=== PATIENT | male | born 1940 | race Caucasian/White ===

== ENCOUNTER 2017-12-17 07:58 | Emergency (ER) | payer BC ==
--- NOTE | 2017-12-17 08:08 | Emergency Department Record ---
History of Present Illness - General Chief complaint: Pain Stated complaint: HIP PAIN Time Seen by Provider: 12/17/17 08:07 Source: Patient Mode of Arrival: EMS Limitations: No limitations - History of Present Illness Initial comments: The patient is here due to L lower back pain for one day. He moved a canoe yesterday and then later noticed the onset of L lower back pain. Initially it was mild but then worsened during the day. This AM the pain is much worse. The pain is mainly only present with movement and twisting. It intermittently radiates down the back of the L leg. There is no leg numbness, weakness, or an bowel or bladder issues. The patient has not taken any medicine for it. He denies any hx of fever, trauma, swelling, AP, dysuria, or hematuria. MD Complaint: Other Onset/Timin -: Days(s) Location: Left, Other History of Same: No Radiation: Distal Severity scale (1-10): 4 Quality: Sharp Consistency: Intermittent Improves with: Nothing Worsens with: Nothing Associated Symptoms: Denies other symptoms - Related Data Home Medications Medication Instructions Recorded Confirmed Last Taken Amlodipine Besylate [Norvasc] 10 mg PO QHS 12/17/17 12/17/17 Unknown Ezetimibe 10 mg PO QHS 12/17/17 12/17/17 Unknown Fenofibrate,Micronized 134 mg PO DAILY 12/17/17 12/17/17 Unknown [Fenofibrate] Furosemide [Lasix] 40 mg PO DAILY 12/17/17 12/17/17 Unknown Insulin Detemir [Levemir Flextouch] 24 units SQ QHS 12/17/17 12/17/17 Unknown Leuprolide Acetate [Lupron Depot 11.25 mg IM ASDIR 12/17/17 12/17/17 Unknown (Lupaneta)] Lovastatin 40 mg PO DAILY 12/17/17 12/17/17 Unknown Metformin HCl 1,000 mg PO BID 12/17/17 12/17/17 Unknown Metoprolol Succinate [Toprol Xl] 25 mg PO DAILY 12/17/17 12/17/17 Unknown Previous Rx's Medication Instructions Recorded Ciprofloxacin HCl [Cipro] 500 mg PO Q12HR #14 tablet 12/17/17 Hydrocodone/Acetaminophen [[place] 1 each PO QID #12 tablet 12/17/17 5-325 Tablet] Allergies Allergy/AdvReac Type Severity Reaction Status Date / Time No Known Drug Allergies Allergy Verified 12/17/17 08:07 Travel Screening - Travel/Exposure Within Last 30 Days Have you traveled within the last 30 days?: No Review of Systems Constitutional: Denies: Chills Eyes: Denies: Eye discharge ENT: Denies: Congestion Respiratory: Denies: Cough, Dyspnea Cardiovascular: Denies: Chest pain Endocrine: Denies: Fatigue Gastrointestinal: Denies: Abdominal pain, Nausea Genitourinary: Denies: Dysuria Musculoskeletal: Reports: Back pain. Denies: Arthralgia Past Medical History - SOCIAL HISTORY Smoking Status: Former smoker Alcohol Use: None Drug Use: None - RESPIRATORY Hx Respiratory Disorders: No - CARDIOVASCULAR Hx Cardio Disorders: Yes Hx Abnormal EKG: Yes Hx Cardiac Cath: Yes Hx Heart Attack: Yes Hx Hypertension: Yes - NEURO Hx Neuro Disorders: No - GI Hx GI Disorders: No - Hx Genitourinary Disorders: Yes Hx Kidney Stones: Yes Hx Prostate Problems: Yes - ENDOCRINE Hx Endocrine Disorders: Yes Hx Diabetes: Yes - MUSCULOSKELETAL Hx Musculoskeletal Disorders: No - PSYCH Hx Psych Problems: No - HEMATOLOGY/ONCOLOGY Hx Hematology/Oncology Disorders: Yes Hx Cancer: Yes (prostate) Hx Chemotherapy: No Hx Radiation Therapy: No Family Medical History Any Significant Family History?: No Physical Exam - General General Appearance: Alert, Oriented x3, Cooperative, No acute distress - Head Head exam: Atraumatic, Normocephalic, Normal inspection - Eye Eye exam: Normal appearance, PERRL - Neck Neck exam: Normal inspection, Full ROM. negative: Tenderness - Respiratory Respiratory exam: Normal lung sounds bilaterally. negative: Respiratory distress - Cardiovascular Cardiovascular Exam: Regular rate, Normal rhythm, Normal heart sounds - GI/Abdominal GI/Abdominal exam: Soft, Normal bowel sounds. negative: Pulsatile mass, Rebound , Rigid, Tenderness - Extremities Extremities exam: Normal inspection, Full ROM, Normal capillary refill. negative: Tenderness - Back Back exam: Reports: Normal inspection, Paraspinal tenderness (The L lower back pain is 100% reproducible to palpation over the L lateral L3-5 paraspinal area. ). Denies: CVA tenderness (R), CVA tenderness (L), Vertebral tenderness Image of Body Front/Back: 1 - Area of pain and tenderness. - Neurological Neurological exam: Alert, Normal gait, Oriented X3, Reflexes normal. negative: Abnormal gait, Altered, Motor sensory deficit (The motor and sensory exams are 5 /5 and equal bilaterally.) - Psychiatric Psychiatric exam: negative: Anxious Course Vital Signs 12/17/17 08:01 Temperature 98.4 F Pulse Rate 54 L Respiratory 18 Rate Blood Pressure 148/73 Pulse Ox 99 - Reevaluation(s) Reevaluation #1: The patient is doing much better at this time. His pain has resolved and he is resting comfortably. 12/17/17 09:25 Reevaluation #2: The patient is doing much better at this time. He is able to get up and walk with only very minimal L buttock pain. There is no leg numbness, weakness, or any abdominal pain or upper back pain. He feels ready for home. I did discuss the lab work and xray and urine results with him and the need for F/U. 12/17/17 09:40 Medical Decision Making - Data Complexity MDM Data: Labs Ordered and/or Reviewed, X-Ray Ordered and/or Reviewed - Lab Data Result diagrams: 12/17/17 08:25 12/17/17 08:25 - Radiology Data Radiology results: Report reviewed (LS Spine: Extensive degenerative disc dz. Neg for acute fx.) Disposition Disposition: Discharge Clinical Impression: Lumbar spine strain Qualifiers: Encounter type: initial encounter Qualified Code(s): S39.012A - Strain of muscle, fascia and tendon of lower back, initial encounter UTI (urinary tract infection) Qualifiers: Urinary tract infection type: site unspecified Hematuria presence: without hematuria Qualified Code(s): N39.0 - Urinary tract infection, site not specified Disposition: Home, Self-Care Condition: (2) Stable Instructions: Urinary Tract Infection in Men (ED), Acute Low Back Pain (ED) Additional Instructions: Please take Advil for 5-7 days for pain along with the [place] for pain. Take the Cipro as directed. Please see your family doctor for recheck later this week or early next week. Return to the ER for any worsening symptoms, pain, fever, leg numbness, weakness, or any bowel or bladder issues. Prescriptions: Ciprofloxacin HCl [Cipro] 500 mg PO Q12HR #14 tablet Hydrocodone/Acetaminophen [[place] 5-325 Tablet] 1 each PO QID #12 tablet Forms: Patient Portal Access Time of Disposition: 10:05 Quality - Quality Measures Quality Measures: N/A - Blood Pressure Screening View Details: Yes Does Patient Have Any of the Following: No Blood Pressure Classification: Hypertensive Reading Systolic Measurement: 148 Diastolic Measurement: 73 Screening for High Blood Pressure: < First Hypertensive BP, F/U Documented > [ [id number]] First Hypertensive Follow-up Interventions: Referral to alternative/primary care provider.
[2017-12-17] MEDS ORDERED: HYDROCODONE/APAP 5/325MG TABLET PO ONE (08:12)
[2017-12-17 08:30] LABS: BASO % 0.4 % (0-6); EOS % 3.3 % (0-6); GRAN % 65.8 % (47-80); HEMATOCRIT 39.3 % (42.0-52.0); HEMOGLOBIN 12.6 gm/dl (14.0-18.0); LYMPH % 20.7 % (16-45); MEAN CELL VOLUME 86.9 fl (81-97); MEAN CORPUSCULAR HGB CONC 32.1 g/dl (32-36); MEAN PLATELET VOLUME 10.8 fl (7.4-10.4); MONO % 9.8 % (0-9); PLATELET COUNT 198 K/uL (130-400); RED BLOOD COUNT 4.52 M/uL (4.40-5.70); RED CELL DISTRIBUTION WIDTH 14.5 % (11.5-14.5); WHITE BLOOD COUNT W/O DIFF 5.7 K/uL (4.2-12.2)
[2017-12-17 08:31] LABS: MEAN CORPUSCULAR HEMOGLOBIN 27.8 pg (27-33)
[2017-12-17 08:39] LABS: BLOOD UREA NITROGEN 24 mg/dL (8-23); CREATININE 0.9 mg/dL (0.7-1.2); EST GLOMERULAR FILTRATION RATE > 60 mL/min
[2017-12-17 08:42] LABS: GLUCOSE,RANDOM 76 mg/dL (74-109)
[2017-12-17] MEDS ORDERED: KETOROLAC 30 MG/ML VIAL IM ONE (08:45)
[2017-12-17 09:24] LABS: URINE APPEARANCE CLEAR; URINE BILIRUBIN NEGATIVE (NEGATIVE); URINE BLOOD NEGATIVE (NEGATIVE); URINE COLOR YELLOW; URINE GLUCOSE (UA) NEGATIVE (NEGATIVE); URINE KETONE NEGATIVE (NEGATIVE); URINE LEUKOCYTE ESTERASE SMALL (NEGATIVE); URINE NITRITE NEGATIVE (NEGATIVE); URINE PROTEIN NEGATIVE (NEGATIVE); URINE UROBILINOGEN 0.2 E.U./dL (0.20 - 1.00)
[2017-12-17 09:37] LABS: URINE EPITHELIAL CELLS NONE SEEN (FEW); URINE RBC NONE SEEN (NONE SEEN)
--- NOTE | 2017-12-18 08:10 | RADIOLOGY REPORT ---
EXAM: LUMBAR SPINE HISTORY: SEVERE BACK PAIN FOR TWO DAYS. TECHNIQUE: Six views of the lumbar spine were obtained. Comparison: None. FINDINGS: Small calcification overlying the lower pole of the left kidney may represent a nonobstructing intrarenal calculus. There is probably some vascular calcification overlying the kidneys as well. Mild anterior wedging of the bodies of T12 and L1 that are likely chronic with associated prominent spurring throughout the visualized lower lumbar spine including the T12-L1 interspace. Prominent spurring in the lumbar spine as well. Narrowing of the lumbosacral interspace consistent with degenerative disk disease, and slight narrowing particularly posteriorly of several other lumbar interspaces as well. Pars interarticularis of L3 on the right not well seen and spondylolysis at this level could not be excluded. No acute fracture of the lumbar spine identified. IMPRESSION: 1. PROMINENT SPURRING IN THE LOWER THORACIC SPINE AND MULTILEVEL DEGENERATIVE CHANGE IN THE LUMBAR SPINE DETAILED ABOVE. 2. NO ACUTE FRACTURE OF THE LUMBAR SPINE IDENTIFIED. THERE MAY BE SPONDYLOLYSIS OF L3 ON THE RIGHT. IF LUMBAR SYMPTOMS PERSIST, A FOLLOW-UP MRI OF THE LUMBAR SPINE WOULD BE SUGGESTED. 3. POSSIBLE NONOBSTRUCTING CALCULUS LOWER POLE LEFT KIDNEY. JOB NUMBER: [id number] [facility]
== END 2017-12-17 10:05 | disposition home or self-care (01) ==
LOC: ER 07:58
DX: S39.012A Strain of muscle, fascia and tendon of lower back, initial encounter (principal); N39.0 Urinary tract infection, site not specified; E11.9 Type 2 diabetes mellitus without complications; I10 Essential (primary) hypertension; I25.2 Old myocardial infarction; Z79.84 Long term (current) use of oral hypoglycemic drugs; Z79.4 Long term (current) use of insulin; Z87.891 Personal history of nicotine dependence; X50.0XXA Overexertion from strenuous movement or load, initial encounter
CPT/HCPCS: 72110; 80048; 81001; 85025; 96372; 99283; 99284; J1885

== ENCOUNTER 2019-03-05 07:03 | Day surgery (SDC) | payer BC ==
[~2019-03-05 07:03] MED LIST: ACETAMINOPHEN 1,000 MG/100 ML BTL IVPB ONE; CEFAZOLIN 2 Gram 2 GM/50 ML BAG IVPB ONE
[2019-03-05] MEDS ORDERED: PROPOFOL 10 MG/ML VIAL IV ONE (07:04)
[2019-03-05] MEDS ORDERED: SEVOFLURANE 250 ML INH ONE (07:04)
[2019-03-05] MEDS ORDERED: FENTANYL PF 100MCG/2ML VIAL IV ONE (07:04)
[2019-03-05] MEDS ORDERED: LIDOCAINE 2% MDV (20MG/ML) 20ML VIAL IV ONE (07:04)
[2019-03-05] MEDS ORDERED: ONDANSETRON HCL IV 4 MG/2 ML VIAL IVP ONE (07:04)
[2019-03-05] MEDS ORDERED: RINGERS SOLUTION,LACTATED 1,000 ML IV ONE (08:06)
== END 2019-03-05 11:05 | disposition home or self-care (01) ==
LOC: SUR 07:03
PROVIDERS: ATTEND Urology
DX: N20.0 Calculus of kidney (principal); Z85.46 Personal history of malignant neoplasm of prostate; I10 Essential (primary) hypertension; D41.4 Neoplasm of uncertain behavior of bladder; E11.9 Type 2 diabetes mellitus without complications; Z79.4 Long term (current) use of insulin; Z95.1 Presence of aortocoronary bypass graft; G47.33 Obstructive sleep apnea (adult) (pediatric)
CPT/HCPCS: 52356; 52352; 52648; 00918; C1769; J2405; J3010; J0690; J7120